=== PATIENT | male | born 1985 | race Asian ===

== ENCOUNTER 2017-05-21 00:11 | Emergency (ER) | payer OTHER ==
[~2017-05-21] VITALS: Ht 180.3 cm; Wt 77.1 kg
[2017-05-21 00:11] VITALS: BP 139/79
[2017-05-21] MEDS ORDERED: ACETAMINOPHEN 325 MG TABLET PO ONE (00:30)
[2017-05-21] MEDS ORDERED: ACETAMINOPHEN 325 MG TABLET ONE (00:32)
--- NOTE | 2017-05-21 00:41 | NUR ---
JEAN PIERRE QUINONES AT BEDSIDE TO REPAIR LACERATION.
== END 2017-05-21 01:38 | disposition home or self-care (01) ==
LOC: ER 00:16
DX: S61.411A Laceration without foreign body of right hand, initial encounter (principal); Z88.6 Allergy status to analgesic agent; V43.52XA Car driver injured in collision with other type car in traffic accident, initial encounter; W45.8XXA Other foreign body or object entering through skin, initial encounter; Y93.89 Activity, other specified; Y92.413 State road as the place of occurrence of the external cause; Y99.8 Other external cause status; Z88.0 Allergy status to penicillin
CPT/HCPCS: 12002; 99283; A4606; A6402; Z7610